=== PATIENT | male | born 1950 | race Caucasian/White ===

== ENCOUNTER → 2016-06-08 | Outpatient (CLI) | payer MEDICARE, OTHER ==
[2016-06-08 11:54] LABS: ABSOLUTE BASOPHILS # (AUTO) 0.1 10^3/uL (0.0-0.2); ABSOLUTE EOSINOPHILS # (AUTO) 0.2 10^3/uL (0.0-0.6); ABSOLUTE LYMPHOCYTES (AUTO) 4.1 10^3/uL (0.5-4.7); ABSOLUTE NEUT (AUTO) 4.8 10^3/uL (1.7-8.2); BASOPHILS % (AUTO) 1.2 % (0-2); EOSINOPHILS % (AUTO) 2.4 % (0-6); HEMATOCRIT 41.5 % (37.9-51.0); HEMOGLOBIN 13.7 g/dL (13.5-17.0); HGB HCT DIFFERENCE -0.4; LYMPHOCYTES % (AUTO) 39.9 % (13-45); MEAN CORPUSCULAR HEMOGLOBIN 28.3 pg (27.0-33.4); MEAN CORPUSCULAR HGB CONC 32.9 g/dL (32.0-36.0); MEAN CORPUSCULAR VOLUME 86 fl (80-97); MONOCYTES % (AUTO) 9.9 % (3-13); RED BLOOD COUNT 4.83 10^6/uL (4.35-5.55); RED CELL DISTRIBUTION WIDTH 14.7 % (11.5-14.0); SEGMENTED NEUTROPHILS % (AUTO) 46.6 % (42-78); WHITE BLOOD COUNT 10.2 10^3/uL (4.0-10.5)
[2016-06-08 12:01] LABS: VENOUS BLOOD BASE EXCESS -0.5 mmol/L; VENOUS BLOOD PCO2 49.2 mmHg (35-63); VENOUS BLOOD PH 7.34 (7.30-7.42)
== END ==
LOC: OD 11:13
PROVIDERS: ATTEND Nurse Practitioner Adult Health
DX: J44.1 Chronic obstructive pulmonary disease with (acute) exacerbation (principal)
CPT/HCPCS: 36415; 82803; 85025; 87070; 87077; 87205

== ENCOUNTER 2019-01-13 09:23 | Emergency (ER) | payer OTHER, MEDICARE ==
[2019-01-13] MEDS ORDERED: IPRATROPIUM/ALBUTEROL 0.5-2.5 MG/3 ML AMPUL NEB ONE (09:42)
[2019-01-13] MEDS ORDERED: KETOROLAC TROMETHAMINE INJ/PF 30 MG/1 ML SDV IM ONE (09:44)
[2019-01-13] MEDS ORDERED: METHOCARBAMOL 500 MG TABLET PO ONE (09:44)
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
--- NOTE | 2019-01-13 10:47 | RADIOLOGY REPORT (SQ) ---
EXAM DESCRIPTION: CHEST 2 VIEWS COMPLETED DATE/TIME: 01/13/2019 10:25 am REASON FOR STUDY: wheezing COMPARISON: Chest films 04/09/2013, 08/06/2015 CT chest 01/03/2016 EXAM PARAMETERS: NUMBER OF VIEWS: two views TECHNIQUE: Digital Frontal and Lateral radiographic views of the chest acquired. RADIATION DOSE: NA LIMITATIONS: none FINDINGS: LUNGS AND PLEURA: Chronic increased interstitial markings are present around the periphery of both lungs likely reflecting some pulmonary fibrosis. Lungs are hyperinflated with flattening in the hemidiaphragms. These findings are stable. No acute infiltrates. No pleural effusion or pneumothorax. MEDIASTINUM AND HILAR STRUCTURES: No masses or contour abnormalities. HEART AND VASCULAR STRUCTURES: Heart normal size. No evidence for failure. BONES: No acute findings. HARDWARE: None in the chest. OTHER: No other significant finding. IMPRESSION: Obstructive lung disease with interstitial disease. No acute infiltrates. TECHNICAL DOCUMENTATION: JOB ID: [id number] [employer]- All Rights Reserved Reading location - IP/workstation name: [email or web address]
[2019-01-13 10:52] VITALS: BP 131/57
== END 2019-01-13 10:55 | disposition home or self-care (01) ==
LOC: ER 09:23
DX: M54.9 Dorsalgia, unspecified (principal); J44.9 Chronic obstructive pulmonary disease, unspecified; V87.7XXA Person injured in collision between other specified motor vehicles (traffic), initial encounter; F17.210 Nicotine dependence, cigarettes, uncomplicated; E78.00 Pure hypercholesterolemia, unspecified; I10 Essential (primary) hypertension; E11.9 Type 2 diabetes mellitus without complications; I25.2 Old myocardial infarction
CPT/HCPCS: 94640; 99284; 96374; 71046; J1885; J7620

== ENCOUNTER 2019-01-31 14:06 | Inpatient (IN) | payer MEDICARE, OTHER ==
--- NOTE | 2019-01-31 14:25 | ER Document Report ---
ED Medical Screen (RME) - General Stated Complaint: ARM TINGLING Time Seen by Provider: 01/31/19 14:19 Mode of Arrival: Wheelchair Information source: Patient Notes: 69-year-old male with history of diabetes presents emergency department with left arm numbness, left foot feeling cold, chest pain. Reports numbness started on . He reports his friend told him he had some garbled speech but he did not believe him. Also reports when he stands up he feels off. Reports the chest pain comes and goes. Patient took a baby aspirin this morning. Took his medications as prescribed. Reports [place] in 2000. I have greeted and performed a rapid initial assessment of this patient. A comprehensive ED assessment and evaluation of the patient, analysis of test results and completion of the medical decision making process will be conducted by additional ED providers. Dictation of this chart was performed using voice recognition software; therefore, there may be some unintended grammatical errors. TRAVEL OUTSIDE OF THE [place] IN LAST 30 DAYS: No - Related Data Allergies/Adverse Reactions: No Known Allergies Allergy (Verified 01/13/19 09:23) Past Medical History - Past Medical History Cardiac Medical History: Reports: Hx Heart Attack, Hx Hypercholesterolemia, Hx Hypertension Pulmonary Medical History: Reports: Hx COPD Endocrine Medical History: Reports: Hx Diabetes Mellitus Type 2 Renal/ Medical History: Denies: Hx Peritoneal Dialysis Past Surgical History: Reports: Hx Cardiac Catheterization - with stent x 2, Hx Cardiac Surgery - STENTS, Hx Genitourinary Surgery - RIGHT KIDNEY, Hx Orthopedic Surgery - bilateral hips, Hx Vascular Surgery - Immunizations Hx Diphtheria, Pertussis, Tetanus Vaccination: No - unknown
[2019-01-31 15:08] LABS: ABSOLUTE BASOPHILS # (AUTO) 0.2 10^3/uL (0.0-0.2); ABSOLUTE EOSINOPHILS # (AUTO) 0.4 10^3/uL (0.0-0.6); ABSOLUTE LYMPHOCYTES (AUTO) 4.5 10^3/uL (0.5-4.7); ABSOLUTE MONOCYTES (AUTO) 0.9 10^3/uL (0.1-1.4); ABSOLUTE NEUT (AUTO) 8.1 10^3/uL (1.7-8.2); BASOPHILS % (AUTO) 1.4 % (0-2); EOSINOPHILS % (AUTO) 2.6 % (0-6); HEMATOCRIT 44.4 % (37.9-51.0); HEMOGLOBIN 14.5 g/dL (13.5-17.0); LYMPHOCYTES % (AUTO) 32.2 % (13-45); MEAN CORPUSCULAR HGB CONC 32.5 g/dL (32.0-36.0); MEAN CORPUSCULAR VOLUME 86 fl (80-97); MONOCYTES % (AUTO) 6.4 % (3-13); PLATELET COUNT 248 10^3/uL (150-450); RED BLOOD COUNT 5.16 10^6/uL (4.35-5.55); RED CELL DISTRIBUTION WIDTH 13.8 % (11.5-14.0); SEGMENTED NEUTROPHILS % (AUTO) 57.4 % (42-78); TOTAL CELLS COUNTED % (AUTO) 100 %; WHITE BLOOD COUNT 14.1 10^3/uL (4.0-10.5)
[2019-01-31 15:14] LABS: INTERNATIONAL RATION (INR) 0.97; PROTHROMBIN TIME 12.9 SEC (11.4-15.4)
[2019-01-31 15:15] LABS: PARTIAL THROMBOPLASTIN TIME 32.7 SEC (23.5-35.8)
--- NOTE | 2019-01-31 15:30 | RADIOLOGY REPORT (SQ) ---
EXAM DESCRIPTION: CHEST SINGLE VIEW COMPLETED DATE/TIME: 01/31/2019 2:43 pm REASON FOR STUDY: cp COMPARISON: Chest films 08/06/2015, 01/13/2019 EXAM PARAMETERS: NUMBER OF VIEWS: One view. TECHNIQUE: Single frontal radiographic view of the chest acquired. RADIATION DOSE: NA LIMITATIONS: None. FINDINGS: LUNGS AND PLEURA: Increased interstitial markings are present, chronic. No acute infiltra lloyd. No pleural effusion or pneumothorax. MEDIASTINUM AND HILAR STRUCTURES: No masses. Contour normal. HEART AND VASCULAR STRUCTURES: Heart normal in size. Normal vasculature. BONES: No acute findings. HARDWARE: Clips right neck post endarterectomy OTHER: No other significant finding. IMPRESSION: No acute findings. Chronic increased interstitial markings, stable TECHNICAL DOCUMENTATION: JOB ID: [id number] [employer]- All Rights Reserved Reading location - IP/workstation name: [email or web address]
[2019-01-31 15:36] LABS: ALBUMIN 4.4 g/dL (3.5-5.0); ALKALINE PHOSPHATASE 72 U/L (38-126); ANION GAP 13 (5-19); ASPARTATE AMINO TRANSFERASE 26 U/L (17-59); BILIRUBIN,DIRECT 0.1 mg/dL (0.0-0.4); BILIRUBIN,TOTAL 0.8 mg/dL (0.2-1.3); BLOOD UREA NITROGEN 20 mg/dL (7-20); CALCIUM 9.7 mg/dL (8.4-10.2); CARBON DIOXIDE 25 mmol/L (22-30); CHLORIDE 100 mmol/L (98-107); CREATINE KINASE 96 U/L (55-170); GLUCOSE 192 mg/dL (75-110); TOTAL PROTEIN 7.6 g/dL (6.3-8.2)
[2019-01-31 15:43] LABS: CREATINE KINASE MB 2.7 ng/mL (<4.55); TROPONIN I 0.015 ng/mL
--- NOTE | 2019-01-31 15:53 | RADIOLOGY REPORT (SQ) ---
EXAM DESCRIPTION: CT HEAD WITHOUT COMPLETED DATE/TIME: 01/31/2019 3:08 pm REASON FOR STUDY: numbness COMPARISON: 04/09/2013 CT brain TECHNIQUE: Axial images acquired through the brain without intravenous contrast. Images reviewed wi th bone, brain and subdural windows. Additional sagittal and coronal reconstructions were generated. Images stored on PACS. All CT scanners at this facility use dose modulation, iterative reconstruction, and/or weight based d osing when appropriate to reduce radiation dose to as low as reasonably achievable (ALARA). [facility]: Dose Right [facility]: CareDose [facility]: Dose Right [facility]: Teradose 4D [facility]: [employer] RADIATION DOSE: CT Rad equipment meets quality standard of care and radiation dose reduction techniq ues were employed. CTDIvol: 53.2 mGy. DLP: 964 mGy-cm. mGy. LIMITATIONS: None. FINDINGS: VENTRICLES: Normal size and contour. CEREBRUM: No masses. No hemorrhage. No midline shift. No evidence for acute infarction. Normal gra y/white matter differentiation. No areas of low density in the white matter. CEREBELLUM: No masses. No hemorrhage. No alteration of density. No evidence for acute infarction. EXTRAAXIAL SPACES: No fluid collections. No masses. ORBITS AND GLOBE: No intra- or extraconal masses. Normal contour of globe without masses. CALVARIUM: No fracture. PARANASAL SINUSES: No fluid or mucosal thickening. SOFT TISSUES: No mass or hematoma. OTHER: No other significant finding. IMPRESSION: NORMAL BRAIN CT WITHOUT CONTRAST. EVIDENCE OF ACUTE STROKE: NO. COMMENT: Quality ID # [id number]: Final reports with documentation of one or more dose reduction techniques (e.g., Automated exposure control, adjustment of the mA and/or kV according to patient size, use of iterative reconstruction technique) TECHNICAL DOCUMENTATION: JOB ID: [id number] [employer]- All Rights Reserved Reading location - IP/workstation name: [email or web address]
[2019-01-31] MEDS ORDERED: TETANUS/DIPHTHERIA TOX-ADULT 0.5 ML SYR (>=7YO) IM ONE (20:39)
[2019-01-31] MEDS ORDERED: IPRATROPIUM/ALBUTEROL 0.5-2.5 MG/3 ML AMPUL NEB ONE (21:48)
[2019-01-31] MEDS ORDERED: ASPIRIN 325 MG TABLET PO ONE (21:49)
--- NOTE | 2019-01-31 22:07 | EKG REPORT ---
SEVERITY:- ABNORMAL ECG - SINUS RHYTHM RIGHT AXIS DEVIATION NONSPECIFIC ST ABNORMALITIES, INFERIOR-LATERAL LEADS : Confirmed by: Prudencio Sanchez MD 31-Jan-2019 22:06:44
--- NOTE | 2019-01-31 22:18 | EKG REPORT ---
SEVERITY:- ABNORMAL ECG - SINUS RHYTHM RIGHT AXIS DEVIATION NONSPECIFIC T ABNORMALITIES, DIFFUSE LEADS : Confirmed by: Prudencio Sanchez MD 31-Jan-2019 22:17:41
--- NOTE | 2019-01-31 23:35 | ER Document Report ---
ED General - General Chief Complaint: S/S of Possible Stroke Stated Complaint: ARM TINGLING Time Seen by Provider: 01/31/19 14:19 Mode of Arrival: Wheelchair Notes: Patient is a 69-year-old male history of COPD, hypertension, hyperlipidemia, diabetes presents to the emergency department with a [id number] feeling in his left upper and lower extremity. Patient states this feeling started approximately at noon. States at that time a friend told him he had slurred speech and his face looked "weird." Patient voices he did not feel as though his face looked differently. States potentially he pinched nerve which is why he did not initially present to the emergency room. Patient states when he did present to the emergency department he had a dull feeling in the left chest. Patient states he no longer has any chest pain. States he was never short of breath. States he does have a history of COPD and does use albuterol. States his typical oxygen saturation is 92%. Patient's denying any URI symptoms or fevers. Medications: Metformin, gabapentin, clonidine, glipizide, Percocet, aspirin, atorvastatin, lisinopril TRAVEL OUTSIDE OF THE [place] IN LAST 30 DAYS: No - Related Data Allergies/Adverse Reactions: No Known Allergies Allergy (Verified 01/13/19 09:23) Past Medical History - General Information source: Patient - Social History Smoking Status: Current Every Day Smoker Chew tobacco use (# tins/day): No Frequency of alcohol use: Social Drug Abuse: None Family History: Reviewed & Not Pertinent Patient has suicidal ideation: No Patient has homicidal ideation: No - Past Medical History Cardiac Medical History: Reports: Hx Heart Attack, Hx Hypercholesterolemia, Hx Hypertension Pulmonary Medical History: Reports: Hx COPD Endocrine Medical History: Reports: Hx Diabetes Mellitus Type 2 Renal/ Medical History: Denies: Hx Peritoneal Dialysis Past Surgical History: Reports: Hx Cardiac Catheterization - with stent x 2, Hx Cardiac Surgery - STENTS, Hx Genitourinary Surgery - RIGHT KIDNEY, Hx Orthopedic Surgery - bilateral hips, Hx Vascular Surgery - Immunizations Hx Diphtheria, Pertussis, Tetanus Vaccination: No - unknown Review of Systems - Review of Systems Constitutional: denies: Fever EENT: No symptoms reported Cardiovascular: See HPI Respiratory: No symptoms reported Gastrointestinal: No symptoms reported Genitourinary: No symptoms reported Male Genitourinary: No symptoms reported Musculoskeletal: See HPI Skin: No symptoms reported Hematologic/Lymphatic: No symptoms reported Physical Exam - Vital signs Vitals: Temp Pulse Resp BP Pulse Ox 98.1 F 88 16 142/69 H 96 01/31/19 14:28 01/31/19 14:28 01/31/19 14:28 01/31/19 14:28 01/31/19 14:28 - Notes Notes: GENERAL: Alert, interacts well. No acute distress. HEAD: Normocephalic, atraumatic. EYES: Pupils equal, round, and reactive to light. Extraocular movements intact. ENT: Oral mucosa moist, tongue midline. NECK: Full range of motion. Supple. Trachea midline. LUNGS: Expiratory wheeze heard bilaterally, no discernible rales, or rhonchi. No respiratory distress. HEART: Regular rate and rhythm. No murmur ABDOMEN: Soft, non-tender. Non-distended. Bowel sounds present in all 4 quadrants. EXTREMITIES: Moves all 4 extremities spontaneously. No edema, normal radial and dorsalis pedis pulses bilaterally. No cyanosis. 5 out of 5 strength noted all 4 extremities. BACK: no cervical, thoracic, lumbar midline tenderness. No saddle anesthesia, normal distal neurovascular exam. NEUROLOGICAL: Alert and oriented x3. Normal speech. cranial nerves II through XII grossly intact PSYCH: Normal affect, normal mood. SKIN: Warm, dry, normal turgor. No rashes or lesions noted. [place] stroke scale noted to be 0. NIH scale 0. Course - Re-evaluation Re-evalutation: Patient voices that his normal oxygen saturation is typically 92%. Patient voices that he is "always breathing fast." States this is his normal due to his COPD. Patient is denying any respiratory distress or chest pain upon my evaluation. States he does continue with a "[id number]-qoy-euwsxte" feeling in his left upper and left lower extremity. Patient's NIH scale done by myself is a 0. I have discussed this case with hospitalist Dr. Marti who will admit the patient to [facility]. - Vital Signs Vital signs: Temp Pulse Resp BP Pulse Ox 98.1 F 81 29 H 143/57 H 91 L 01/31/19 14:28 01/31/19 19:37 01/31/19 20:01 01/31/19 20:01 09/21/19 20:01 - Laboratory Result Diagrams: 01/31/19 14:57 01/31/19 14:57 Laboratory results interpreted by me: 01/31/19 01/31/19 01/31/19 14:57 14:57 14:57 WBC 14.1 H Glucose 192 H POC Glucose 188 H Discharge - Discharge Clinical Impression: Tingling of right upper extremity, Numbness and tingling of right lower extremity Condition: Stable Disposition: ADMITTED INPATIENT Admitting Provider: Figueroa (Hospitalist) Unit Admitted: [facility]
[2019-02-01] MEDS ORDERED: ONDANSETRON HCL INJ/PF 4 MG/2 ML SDV IV PRN (03:56)
[2019-02-01] MEDS ORDERED: LABETALOL HCL INJ 20 MG/4 ML DISP.SYRIN IV PRN (03:56)
[2019-02-01] MEDS ORDERED: DOCUSATE SODIUM 100 MG CAPSULE PO PRN (03:56)
[2019-02-01] MEDS ORDERED: TRAMADOL HCL 50 MG TABLET PO PRN (03:56)
[2019-02-01] MEDS ORDERED: ACETAMINOPHEN 325 MG TABLET PO PRN (03:56)
[2019-02-01] MEDS ORDERED: TEMAZEPAM 15 MG CAPSULE PO PRN (03:56)
[2019-02-01] MEDS ORDERED: MAGNESIUM HYDROXIDE SUSP 30 ML UDCUP PO PRN (03:56)
[2019-02-01] MEDS ORDERED: NITROGLYCERIN 0.4 MG/TAB 25 TAB/BOTTLE SL PRN (04:07)
[2019-02-01] MEDS ORDERED: LEVALBUTEROL HCL NEB 0.63 MG/3 ML AMPUL NEB PRN (04:07)
[2019-02-01] MEDS ORDERED: GLUCAGON,HUMAN RECOMB 1 MG INJ IM PRN (04:07)
[2019-02-01] MEDS ORDERED: DEXTROSE 50%-WATER 25 GM/50 ML DISP.SYRIN IV PRN ×2 (04:07)
[2019-02-01] MEDS ORDERED: MAG HYDROX/AL HYDROX/SIMETH SUSP 30 ML UDCUP PO PRN (04:07)
[2019-02-01] MEDS ORDERED: DEXTROSE 40% GEL 15 GM TUBE PO PRN ×2 (04:07)
[2019-02-01] MEDS ORDERED: MORPHINE SULFATE 10 MG/ML INJ IV PRN ×4 (04:07→04:12)
[2019-02-01 04:58] LABS: APPEARANCE,URINE SLIGHTLY-CLOUDY; BILIRUBIN,URINE NEGATIVE (NEGATIVE); COLOR,URINE YELLOW; GLUCOSE, URINE >=500 mg/dL (NEGATIVE); KETONES,URINE NEGATIVE (NEGATIVE); LEUKOCYTE ESTERASE,URINE MODERATE (NEGATIVE); NITRITE,URINE NEGATIVE (NEGATIVE); PROTEIN,URINE 30 mg/dL (NEGATIVE); URINE SPECIFIC GRAVITY 1.009; UROBILINOGEN,URINE NEGATIVE mg/dL (<2.0)
[2019-02-01] MEDS ORDERED: SCOPOLAMINE HYDROBROMIDE 1.5 MG PATCH.TD72 TD ONE (05:43)
--- NOTE | 2019-02-01 05:47 | PDOC H&P ---
History of Present Illness Admission Date/PCP: 01/31/19 23:47 Almaz Robles Patient complains of: Left-sided tingling History of Present Illness: RENATA AGUILAR is a 69 year old male who presents the emergency room with a 3-day history of a tingling sensation in his left upper and lower extremities. He states that his left arm and leg abruptly began tingling ([id number]) at approximately noon on 01/29/2019, while he was driving home. The tingling has remained constant and of moderate intensity since onset. He further admits that a friend of his told him that his speech was a little slurred and that his face looked different than usual when his symptoms started. Patient states that he checked in the mirror and listen to himself and did not see or hear any changes. He adds that he has experienced some general dizziness with standing or changing position and a dull sensation in his left chest earlier on the day of admission that lasted for a few minutes and resolved spontaneously. He denies other associated signs or symptoms. He denies prior similar episodes. He has not identified any aggravating or ameliorating factors for the tingling sensation in his left extremities. In the emergency room he was found to have a CT scan of the head negative for evidence of acute stroke or hemorrhage. His laboratory evaluation was unremarkable with the exception of an elevated serum glucose. Patient was subsequently admitted to the [facility] for evaluation and treatment in the stroke protocol. Past Medical History Cardiac Medical History: Reports: Coronary Artery Disease, Myocardial Infarction, Hyperlipidema, Hypertension Denies: Atrial Fibrillation, Congestive Heart Failure Pulmonary Medical History: Reports: Chronic Obstructive Pulmonary Disease (COPD) Denies: Asthma, Respiratory Failure EENT Medical History: Denies: Cataracts, Ears - Hearing aids Neurological Medical History: Denies: Hemorrhagic CVA, Ischemic CVA, Seizures Endocrine Medical History: Reports: Diabetes Mellitus Type 2 Denies: Diabetes Mellitus Type 1, Hyperthyroidism, Hypothyroidism, Obesity Renal/ Medical History: Denies: Chronic Kidney Disease, Nephrolithiasis Malignancy Medical History: Reports: None GI Medical History: Denies: Cirrhosis, Crohn's Disease, Gastroesophageal Reflux Disease, Hepatitis, Peptic Ulcer Disease, Ulcerative Colitis Musculoskeltal Medical History: Denies: Arthritis, Gout Skin Medical History: Denies: Eczema, Psoriasis Psychiatric Medical History: Reports: Tobacco Dependency Denies: Alcohol Dependency, Depression, Substance Abuse Traumatic Medical History: Reports: None Hematology: Denies: Anemia, Bleeding Tendencies Infectious Medical History: Reports: None Past Surgical History Past Surgical History: Reports: Cardiac Catheterization, Coronary Stent - X 2, Hip Replacement, Orthopedic Surgery - bilateral hips, Vascular Surgery Social History Information Source: Patient Lives with: Alone Smoking Status: Current Every Day Smoker Cigarettes Packs Per Day: 1.5 Number of Years Smokin Last Time Smoked: today Frequency of Alcohol Use: Rare Hx Recreational Drug Use: No Drugs: None Hx Prescription Drug Abuse: No - Advance Directive Resuscitation Status: Full Code Surrogate healthcare decision maker:: Dima Myrick Family History Family History: CAD, DM, Hypertension. denies: Malignancy Parental Family History Reviewed: Yes Children Family History Reviewed: No Sibling(s) Family History Reviewed.: Yes Medication/Allergy Home Medications: Gabapentin [Neurontin] 1,200 mg PO TID 08/06/15 Glimepiride 8 mg PO BID 08/06/15 Lovastatin 40 mg PO QHS 08/06/15 Metformin HCl 1,000 mg PO BID 08/06/15 Albuterol Sulfate [Proair HFA Inhalation Aerosol 8.5 gm MDI] 1 puff IH Q4 PRN #1 mdi 08/07/15 Aspirin [Ecotrin 81 mg EC Tablet] 81 mg PO DAILY tabec 08/07/15 Budesonide/Formoterol Fumarate [Symbicort HFA 160-4.5 mcg Inhaler 6 gm] 2 puff IH Q12 #1 inhaler 08/07/15 Clonidine HCl [Catapres 0.1 mg Tablet] 0.1 mg PO Q12 #60 tablet 08/07/15 Doxycycline Hyclate 100 mg PO BID #14 capsule 08/07/15 Lisinopril [Prinivil 10 mg Tablet] 10 mg PO DAILY #30 tablet 08/07/15 Oxycodone HCl/Acetaminophen [Percocet 7.5-325 mg Tablet] 1 each PO Q6HP PRN #20 tablet 08/07/15 Prednisone 10 mg PO DAILY #13 tablet 08/07/15 Methocarbamol [Robaxin 500 mg Tablet] 1,000 mg PO TID #15 tablet 01/13/19 Allergies/Adverse Reactions: No Known Allergies Allergy (Verified 01/13/19 09:23) Review of Systems Constitutional: ABSENT: chills, fever(s) Eyes: ABSENT: visual disturbances, other - Eye pain Ears: ABSENT: hearing changes, other - Ear pain Nose, Mouth, and Throat: ABSENT: mouth pain, sore throat Cardiovascular: PRESENT: as per HPI, chest pain. ABSENT: dyspnea on exertion, edema, orthropnea, palpitations Respiratory: ABSENT: cough, dyspnea Gastrointestinal: ABSENT: abdominal pain, constipation, diarrhea, nausea, v omiting Genitourinary: ABSENT: dysuria, hematuria Musculoskeletal: ABSENT: back pain, joint swelling, muscle weakness Integumentary: ABSENT: pruritus, rash Neurological: PRESENT: as per HPI, abnormal speech, dizziness, tingling. ABSENT: confusion, convulsions, focal weakness, memory loss, syncope Psychiatric: ABSENT: anxiety, depression Endocrine: ABSENT: cold intolerance, heat intolerance Hematologic/Lymphatic: ABSENT: easy bleeding, easy bruising Allergic/Immunologic: ABSENT: seasonal rhinorrhea Physical Exam Vital Signs: Temp Pulse Resp BP Pulse Ox 98.3 F 80 16 165/72 H 95 02/01/19 02:02 02/01/19 02:06 02/01/19 02:06 02/01/19 02:06 02/01/19 02:06 Intake & Output 01/30/19 01/31/19 02/01/19 23:59 23:59 23:59 Weight 71.5 kg General appearance: PRESENT: no acute distress, cooperative Head exam: PRESENT: atraumatic, normocephalic Eye exam: PRESENT: conjunctiva pink, nystagmus. ABSENT: conjunctival injection, scleral icterus Ear exam: PRESENT: normal external ear exam. ABSENT: bleeding, drainage Mouth exam: PRESENT: dry mucosa, neck supple Neck exam: ABSENT: thyromegaly, tracheal deviation Respiratory exam: PRESENT: clear to auscultation emily, symmetrical, unlabored Cardiovascular exam: PRESENT: RRR. ABSENT: clicks, gallop, rubs Pulses: PRESENT: normal radial pulses, normal dorsalis pedis pul Vascular exam: PRESENT: normal capillary refill. ABSENT: pallor GI/Abdominal exam: PRESENT: normal bowel sounds, soft Rectal exam: PRESENT: deferred - [id number] Extremities exam: ABSENT: joint swelling, pedal edema Musculoskeletal exam: ABSENT: deformity, dislocation Neurological exam: PRESENT: alert, oriented to person, oriented to place, oriented to time, oriented to situation, CN II-XII grossly intact. ABSENT: motor sensory deficit Psychiatric exam: PRESENT: appropriate affect, normal mood Skin exam: PRESENT: dry, intact, warm. ABSENT: jaundice, rash, urticaria Results Laboratory Results: 01/31/19 14:57 01/31/19 14:57 01/31/19 01/31/19 14:57 14:57 WBC 14.1 H RBC 5.16 Hgb 14.5 Hct 44.4 MCV 86 MCH 28.0 MCHC 32.5 RDW 13.8 Plt Count 248 Seg Neutrophils % 57.4 Sodium 137.6 Potassium 4.0 Chloride 100 Carbon Dioxide 25 Anion Gap 13 BUN 20 Creatinine 1.02 Est GFR ( Amer) > 60 Glucose 192 H Calcium 9.7 Total Bilirubin 0.8 AST 26 Alkaline Phosphatase 72 Total Protein 7.6 Albumin 4.4 01/31/19 01/31/19 01/31/19 14:57 14:57 21:45 Creatine Kinase 96 CK-MB (CK-2) 2.70 Troponin I 0.015 0.015 Impressions: Chest X-Ray 01/31/19 14:23 IMPRESSION: No acute findings. Chronic increased interstitial markings, stable Head CT 01/31/19 14:23 IMPRESSION: NORMAL BRAIN CT WITHOUT CONTRAST. EVIDENCE OF ACUTE STROKE: NO. Assessment and Plan - Diagnosis (1) Numbness and tingling of right upper and lower extremity Is this a current diagnosis for this admission?: Yes Plan: Patient is admitted to [facility] per the stroke protocol. An MRI of the brain, carotid Doppler studies and an echocardiogram will be obtained. Patient will be started on appropriate initial therapy including Plavix 75 mg p.o. daily. Patient will have available morphine sulfate 2 to 4 mg IV every 2 hours on a as needed basis for pain via sliding scale. (2) Chest pain Qualifiers: Chest pain type: other chest pain Qualified Code(s): R07.89 - Other chest pain; R07.8 - Other chest pain Is this a current diagnosis for this admission?: Yes Plan: Serial cardiac enzymes will be obtained to evaluate the patient's chest pain. Morphine sulfate 2 to 4 mg IV every 2 hours on an as needed basis via sliding scale for pain. (3) Chronic obstructive pulmonary disease (COPD) Qualifiers: COPD type: unspecified COPD Qualified Code(s): J44.9 - Chronic obstructive pulmonary disease, unspecified Is this a current diagnosis for this admission?: Yes Plan: Patient will be continued on his usual regimen for COPD if available per our pharmacy. If unavailable a reasonable formulary substitution will be provided. (4) Hypertension Qualifiers: Hypertension type: essential hypertension Qualified Code(s): I10 - Essential (primary) hypertension Is this a current diagnosis for this admission?: Yes Plan: Patient be continued on his usual antihypertensive regimen. Patient's blood pressure will be monitored closely throughout his hospital course. (5) Hyperlipidemia Qualifiers: Hyperlipidemia type: unspecified Qualified Code(s): E78.5 - Hyperlipidemia, unspecified Is this a current diagnosis for this admission?: Yes Plan: A lipid profile will be obtained. Patient will be continued on his usual therapeutic regimen. Patient will be continued on a cardiac diet. (6) Diabetes mellitus type 2 in nonobese Is this a current diagnosis for this admission?: Yes Plan: Hemoglobin A1c will be obtained to assess the patient's current therapy. He will be continued on his usual diabetic therapy and a diabetic diet. Before meals and at bedtime Accu-Cheks to be performed with sliding scale insulin used to cover hyperglycemia and a hypoglycemic protocol being in place. (7) Tobacco use disorder, severe, dependence Is this a current diagnosis for this admission?: Yes Plan: Smoking cessation is advised and counseled briefly at the bedside. A nicotine replacement patch is available for the patient's use. - Time Time Spent with patient: 25-34 minutes Smoking Cessation Education: 3 to 10 minutes Medications reviewed and adjusted accordingly: Yes Anticipated discharge: Home - Inpatient Certification Based on my medical assessment, after consideration of the patient's comorbidities, presenting symptoms, or acuity I expect that the services needed warrant INPATIENT care.: Yes I certify that my determination is in accordance with my understanding of Medicare's requirements for reasonable and necessary INPATIENT services [42 CFR 412.3e].: Yes Medical Necessity: Significant Comorbidiites Make Outpatient Treatment Too Risky, Need Close Monitoring Due to Risk of Patient Decompensation, Need For Continuous Telemetry Monitoring, Need for Neurological Checks, Risk of Compl ication if Not Cared For in Hospital
[2019-02-01] MEDS: GABAPENTIN 400 MG CAPSULE PO SCH ×3 (05:50→21:52)
[2019-02-01] MEDS: NICOTINE 21 MG/24 HR PATCH.TD24 TD PRN ×2 (05:51→22:02)
[2019-02-01] MEDS: HEPARIN SOD (PORCINE) 5,000 UNIT/ML 1 ML VIAL SUBCUT SCH ×3 (05:57→21:52)
[2019-02-01] MEDS ORDERED: GABAPENTIN 400 MG CAPSULE PO SCH (06:00)
[2019-02-01] MEDS ORDERED: SCOPOLAMINE HYDROBROMIDE 1.5 MG PATCH.TD72 ONE (06:20)
[2019-02-01 06:53] LABS: CREATINE KINASE MB 2.16 ng/mL (<4.55); TROPONIN I 0.012 ng/mL
[2019-02-01] MEDS: IPRATROPIUM BROMIDE 0.02% NEB 0.5 MG/2.5 ML AMPUL NEB SCH ×3 (07:57→23:34)
[2019-02-01] MEDS: LEVALBUTEROL HCL NEB 1.25 MG/3 ML AMPUL NEB SCH ×3 (07:57→23:34)
[2019-02-01] MEDS: BUDESONIDE NEB 0.5 MG/2 ML AMPUL NEB SCH ×2 (07:57→20:52)
[2019-02-01] MEDS: GLIMEPIRIDE 4 MG TABLET PO SCH ×2 (08:15→21:52)
[2019-02-01] MEDS: METFORMIN HCL 500 MG TABLET PO SCH ×2 (08:15→17:07)
[2019-02-01] MEDS: INSULIN REG, HUMAN 100 UNIT/ML 3 ML VIAL (PYX) SUBCUT SCH ×4 (08:16→23:19)
[2019-02-01] MEDS: FAMOTIDINE 20 MG TABLET PO SCH ×2 (11:03→21:52)
[2019-02-01] MEDS: CLOPIDOGREL BISULFATE 75 MG TABLET PO SCH (11:03)
[2019-02-01 12:40] LABS: CREATINE KINASE MB 2.23 ng/mL (<4.55)
[2019-02-01 12:46] LABS: TROPONIN I < 0.012 ng/mL
[2019-02-01] MEDS: CLONIDINE HCL 0.1 MG TABLET PO SCH ×2 (15:51→21:52)
[2019-02-01] MEDS: LISINOPRIL 10 MG TABLET PO SCH (15:52)
--- NOTE | 2019-02-01 16:49 | PDOC PROGRESS REPORT ---
Subjective Progress Note for:: 02/01/19 Subjective:: Reportedly off and on slurred speech and numbness and tingling which has been constant in the left arm and left leg. Patient does not have a history of previous CVA or TIAs but he does have a history of cardiac disease with stents. He also tells me he has had a left carotid endarterectomy. Therefore patient does have vascular disease. he also tells me that he had an MRI of his head and cervical spine about 3 weeks ago at pain management, [facility] pain try to get those results tomorrow. Reason For Visit: NUMBNESS AND TINGLING OF LEFT EXTREMITIES Physical Exam Vital Signs: Temp Pulse Resp BP Pulse Ox 97.3 F 78 18 157/81 H 95 02/01/19 11:21 02/01/19 15:57 02/01/19 15:57 02/01/19 12:00 02/01/19 15:57 Intake & Output 01/31/19 02/01/19 02/02/19 06:59 06:59 06:59 Intake Total 240 Output Total 225 Balance 15 Weight 69 kg General appearance: PRESENT: no acute distress, other - Patient is talking and joking in no distress. Actually asking to watch the football game. Respiratory exam: PRESENT: clear to auscultation emily. ABSENT: rales, rhonchi, wheezes Cardiovascular exam: PRESENT: RRR. 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 ABSENT: motor sensory deficit Psychiatric exam: PRESENT: appropriate affect, normal mood. ABSENT: homicidal ideation, suicidal ideation Results Laboratory Results: 01/31/19 14:57 01/31/19 14:57 02/01/19 04:30 Urine Color YELLOW Urine Appearance SLIGHTLY-CLOUDY Urine pH 7.0 Ur Specific [place] 1.009 Urine Protein 30 H Urine Glucose (UA) >=500 H Urine Ketones NEGATIVE Urine Blood NEGATIVE Urine Nitrite NEGATIVE Ur Leukocyte Esterase MODERATE H Urine WBC (Auto) 30 Urine RBC (Auto) 0 01/31/19 01/31/19 01/31/19 14:57 14:57 21:45 Creatine Kinase 96 CK-MB (CK-2) 2.70 Troponin I 0.015 0.015 02/01/19 02/01/19 02/01/19 05:28 05:28 11:51 Creatine Kinase 80 93 CK-MB (CK-2) 2.16 Troponin I 0.012 02/01/19 11:51 Creatine Kinase CK-MB (CK-2) 2.23 Troponin I < 0.012 Impressions: Chest X-Ray 01/31/19 14:23 IMPRESSION: No acute findings. Chronic increased interstitial markings, stable Head CT 01/31/19 14:23 IMPRESSION: NORMAL BRAIN CT WITHOUT CONTRAST. EVIDENCE OF ACUTE STROKE: NO. Assessment and Plan - Diagnosis (1) CAD (coronary artery disease) Is this a current diagnosis for this admission?: Yes Plan: Patient tells me that he had coronary stents placed approximately 1 and half years ago. Patient is having no chest pain on this admission (2) Hypertension Is this a current diagnosis for this admission?: Yes Plan: Patient is supposed to take clonidine 0.1 mg every 12 hours, as well as Prinivil 5 mg daily blood pressure on admission was 128/66 today it is running about 170/80. After watching his blood pressures throughout the day and last night I am going to restart his lisinopril at 10 mg daily (3) Chronic obstructive pulmonary disease (COPD) Qualifiers: COPD type: unspecified COPD Qualified Code(s): J44.9 - Chronic obstructive pulmonary disease, unspecified Is this a current diagnosis for this admission?: Yes Plan: Patient will be continued on his usual regimen for COPD if available per our pharmacy. If unavailable a reasonable formulary substitution will be provided. 02/01/2019 patient was taking albuterol inhaler as needed will be ordered on a as needed basis if needed.. Patient has no symptoms now suggestive of COPD exacerbation (4) Hypertension Qualifiers: Hypertension type: essential hypertension Qualified Code(s): I10 - Essential (primary) hypertension Is this a current diagnosis for this admission?: Yes Plan: Patient be continued on his usual antihypertensive regimen. Patient's blood pressure will be monitored closely throughout his hospital course. 02/01/2019 patient was on clonidine 0.1 mg every 12 hours and Prinivil 5 mg daily on admission his pressure was normal 128/66 but during the night last night it went up to 182/74 this morning early 187/71 and outs bounced back up to 172/84. We will resume the lisinopril only and hold on the Catapres at this time. (5) Numbness and tingling of right upper and lower extremity Is this a current diagnosis for this admission?: Yes Plan: Patient is admitted to [facility] per the stroke protocol. An MRI of the brain, carotid Doppler studies and an echocardiogram will be obtained. Patient will be started on appropriate initial therapy including Plavix 75 mg p.o. daily. Patient will have available morphine sulfate 2 to 4 mg IV every 2 hours on a as needed basis for pain via sliding scale. 02/01/2019 patient will have a carotid Doppler and an echo and we will get his MRI scans from 3 weeks ago of his head. CT brain scan was negative for acute infarction patient's numbness and tingling have been constant for the last 3 days on his left arm and left leg. he describes this is paresthesias or dysesthesias I honestly cannot detect any weakness of the left terrazzo layer strength nor does he have a drift nor does he have any facial weakness. (6) Diabetes mellitus type 2 in nonobese Is this a current diagnosis for this admission?: Yes Plan: Hemoglobin A1c will be obtained to assess the patient's current therapy. He will be continued on his usual diabetic therapy and a diabetic diet. Before meals and at bedtime Accu-Cheks to be performed with sliding scale insulin used to cover hyperglycemia and a hypoglycemic protocol being in place. 02/01/2019 glucose last night on admission was 192. Fingerstick today ranges between 101 and 218. Patient was on Amaryl 4 mg twice daily and metformin thousand milligrams twice daily as an outpatient. - Time Time Spent with patient: 35 or more minutes
[2019-02-01] MEDS ORDERED: LISINOPRIL 10 MG TABLET PO ONE (17:30)
--- NOTE | 2019-02-01 17:41 | EKG REPORT ---
SEVERITY:- ABNORMAL ECG - SINUS RHYTHM NONSPECIFIC INFERIOR ST-T CHANGES : Confirmed by: Prudencio Sanchez MD 01-Feb-2019 17:40:40
[2019-02-01 18:05] LABS: CREATINE KINASE MB 1.98 ng/mL (<4.55)
[2019-02-01 18:08] LABS: TROPONIN I < 0.012 ng/mL
[2019-02-01] MEDS ORDERED: NICOTINE 21 MG/24 HR PATCH.TD24 ONE (22:02)
[2019-02-02] MEDS: HEPARIN SOD (PORCINE) 5,000 UNIT/ML 1 ML VIAL SUBCUT SCH ×3 (05:51→21:31)
[2019-02-02] MEDS: GABAPENTIN 400 MG CAPSULE PO SCH ×3 (05:51→21:30)
[2019-02-02 07:07] LABS: HEMATOCRIT 39.8 % (37.9-51.0); MEAN CORPUSCULAR HEMOGLOBIN 27.8 pg (27.0-33.4); MEAN CORPUSCULAR HGB CONC 32.6 g/dL (32.0-36.0); MEAN CORPUSCULAR VOLUME 85 fl (80-97); PLATELET COUNT 218 10^3/uL (150-450); RED BLOOD COUNT 4.67 10^6/uL (4.35-5.55); RED CELL DISTRIBUTION WIDTH 13.9 % (11.5-14.0); WHITE BLOOD COUNT 9.7 10^3/uL (4.0-10.5)
[2019-02-02 07:29] LABS: ANION GAP 11 (5-19); BLOOD UREA NITROGEN 11 mg/dL (7-20); CARBON DIOXIDE 22 mmol/L (22-30); CHLORIDE 102 mmol/L (98-107); CHOLESTEROL 149.37 mg/dL (0-200); GLUCOSE 163 mg/dL (75-110); POTASSIUM 4.3 mmol/L (3.6-5.0); TRIGLYCERIDES 498 mg/dL (<150)
[2019-02-02 07:40] LABS: DIRECT LDL 69 mg/dL (<100)
[2019-02-02] MEDS: LEVALBUTEROL HCL NEB 1.25 MG/3 ML AMPUL NEB SCH ×2 (08:11→16:20)
[2019-02-02] MEDS: BUDESONIDE NEB 0.5 MG/2 ML AMPUL NEB SCH ×2 (08:11→20:15)
[2019-02-02] MEDS: IPRATROPIUM BROMIDE 0.02% NEB 0.5 MG/2.5 ML AMPUL NEB SCH ×2 (08:11→16:20)
[2019-02-02] MEDS: METFORMIN HCL 500 MG TABLET PO SCH ×2 (09:47→16:57)
[2019-02-02] MEDS: LISINOPRIL 10 MG TABLET PO SCH (09:47)
[2019-02-02] MEDS: CLONIDINE HCL 0.1 MG TABLET PO SCH ×2 (09:47→21:30)
[2019-02-02] MEDS: GLIMEPIRIDE 4 MG TABLET PO SCH ×2 (09:47→16:57)
[2019-02-02] MEDS: CLOPIDOGREL BISULFATE 75 MG TABLET PO SCH (09:47)
[2019-02-02] MEDS: FAMOTIDINE 20 MG TABLET PO SCH ×2 (09:48→21:30)
[2019-02-02] MEDS: INSULIN REG, HUMAN 100 UNIT/ML 3 ML VIAL (PYX) SUBCUT SCH ×4 (09:48→21:28)
--- NOTE | 2019-02-02 11:01 | PDOC PROGRESS REPORT ---
Subjective Progress Note for:: 02/02/19 Subjective:: Reportedly off and on slurred speech and numbness and tingling which has been constant in the left arm and left leg. Patient does not have a history of previous CVA or TIAs but he does have a history of cardiac disease with stents. He also tells me he has had a left carotid endarterectomy. Therefore patient does have vascular disease. he also tells me that he [facility]. 02/02/2019 nurses are trying to get a the report for the MRI scan. We are starting back some of his blood pressure medicine today adjusting his gabapentin teen and Percocet order Echo and carotid are pending for today Reason For Visit: NUMBNESS AND TINGLING OF LEFT EXTREMITIES Physical Exam Vital Signs: Temp Pulse Resp BP Pulse Ox 97.7 F 75 14 138/69 H 93 02/02/19 07:47 02/02/19 08:11 02/02/19 08:11 02/02/19 07:47 02/02/19 08:11 Intake & Output 02/01/19 02/02/19 02/03/19 06:59 06:59 06:59 Intake Total 240 1164 Output Total 225 Balance 15 1164 Weight 69 kg 70.3 kg Results Laboratory Results: 02/02/19 06:32 02/02/19 06:32 02/02/19 02/02/19 06:32 06:32 WBC 9.7 RBC 4.67 Hgb 13.0 L Hct 39.8 MCV 85 MCH 27.8 MCHC 32.6 RDW 13.9 Plt Count 218 Sodium 135.1 L Potassium 4.3 Chloride 102 Carbon Dioxide 22 Anion Gap 11 BUN 11 Creatinine 0.79 Est GFR ( Amer) > 60 Glucose 163 H Calcium 10.0 Triglycerides 498 H Cholesterol 149.37 LDL Cholesterol Direct 69 HDL Cholesterol 39 L 01/31/19 01/31/19 01/31/19 14:57 14:57 21:45 Creatine Kinase 96 CK-MB (CK-2) 2.70 Troponin I 0.015 0.015 02/01/19 02/01/19 02/01/19 05:28 05:28 11:51 Creatine Kinase 80 93 CK-MB (CK-2) 2.16 Troponin I 0.012 02/01/19 02/01/19 02/01/19 11:51 17:20 17:20 Creatine Kinase 94 CK-MB (CK-2) 2.23 1.98 Troponin I < 0.012 < 0.012 Impressions: Chest X-Ray 01/31/19 14:23 IMPRESSION: No acute findings. Chronic increased interstitial markings, stable Head CT 01/31/19 14:23 IMPRESSION: NORMAL BRAIN CT WITHOUT CONTRAST. EVIDENCE OF ACUTE STROKE: NO. Assessment and Plan - Diagnosis (1) CAD (coronary artery disease) Is this a current diagnosis for this admission?: Yes Plan: Patient tells me that he had coronary stents placed approximately 1 and half years ago. Patient is having no chest pain on this admission 02/02/2019 patient is having no chest pain, no signs of ischemia. Patient is currently taking lisinopril 5 mg daily and Lipitor 40 mg daily (2) Hypertension Is this a current diagnosis for this admission?: Yes Plan: Patient is supposed to take clonidine 0.1 mg every 12 hours, as well as Prinivil 5 mg daily blood pressure on admission was 128/66 today it is running about 170/80. After watching his blood pressures throughout the day and last night I am going to restart his lisinopril at 10 mg daily 02/02/2019 patient's blood pressure so far this morning has been elevated, early at 0400 171/100 and then later at around 0800 gone down to 138/69. (3) Chronic obstructive pulmonary disease (COPD) Qualifiers: COPD type: unspecified COPD Qualified Code(s): J44.9 - Chronic obstructive pulmonary disease, unspecified Is this a current diagnosis for this admission?: Yes Plan: Patient will be continued on his usual regimen for COPD if available per our pharmacy. If unavailable a reasonable formulary substitution will be provided. 02/01/2019 patient was taking albuterol inhaler as needed will be ordered on a as needed basis if needed.. Patient has no symptoms now suggestive of COPD exacerbation 02/02/2019 patient's lungs have some coarse rhonchi scattered as well as some wheezing patient states that he has had COPD for a long time now. Patient states he supposed use oxygen at home but it was too expensive and has not used it in several years. Patient COPD is not a problem now for this admission, that is to say he does not have an exacerbation (4) Numbness and tingling of right upper and lower extremity Is this a current diagnosis for this admission?: Yes Plan: Patient is admitted to [facility] per the stroke protocol. An MRI of the brain, carotid Doppler studies and an echocardiogram will be obtained. Patient will be started on appropriate initial therapy including Plavix 75 mg p.o. daily. Patient will have available morphine sulfate 2 to 4 mg IV every 2 hours on a as needed basis for pain via sliding scale. 02/01/2019 patient will have a carotid Doppler and an echo and we will get his MRI scans from 3 weeks ago of his head. CT brain scan was negative for acute infarction patient's numbness and tingling have been constant for the last 3 days on his left arm and left leg. 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 02/02/2019 (5) Diabetes mellitus type 2 in nonobese Is this a current diagnosis for this admission?: Yes Plan: Hemoglobin A1c will be obtained to assess the patient's current therapy. He will be continued on his usual diabetic therapy and a diabetic diet. Before meals and at bedtime Accu-Cheks to be performed with sliding scale insulin used to cover hyperglycemia and a hypoglycemic protocol being in place. 02/01/2019 glucose last night on admission was 192. Fingerstick today ranges between 101 and 218. Patient was on Amaryl 4 mg twice daily and metformin thousand milligrams twice daily as an outpatient. 02/02/2019 serum glucose this morning was 163 A1c on admission was 8.2 - Time Time Spent with patient: 35 or more minutes - I have canceled the speech therapy consult, barium swallow
--- NOTE | 2019-02-02 12:36 | RADIOLOGY REPORT (SQ) ---
EXAM DESCRIPTION: CAROTID DOPPLER COMPLETED DATE/TIME: 02/02/2019 12:20 pm REASON FOR STUDY: Left sided tingling COMPARISON: None. TECHNIQUE: Grayscale ultrasound, Doppler velocity and spectra, and color Doppler images acquired of the extra-cranial carotid and vertebral arteries. Images stored on PACS. LIMITATIONS: None. FINDINGS: RIGHT CAROTID CCA Velocities: Within normal limits. ICA Velocities Complete occlusion. Heterogenous plaque. LEFT CAROTID CCA Velocities: Within normal limits. ICA Velocities Peak systolic 2.29 m/s. End diastolic 0.72 m/s. Proximal ICA/CCA peak systolic ratio 1.9. Heterogenous plaque. VERTEBRAL ARTERIES: Unable to visualize the right vertebral artery. Elevated antegrade flow in the l eft vertebral artery. SUBCLAVIAN ARTERIES: No finding. OTHER: No other significant finding. IMPRESSION: 1. COMPLETE OCCLUSION OF THE RIGHT INTERNAL CAROTID ARTERY. 2. 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 3. UNABLE TO VISUALIZE THE RIGHT VERTEBRAL ARTERY. ELEVATED ANTEGRADE FLOW IN THE LEFT VERTEBRAL ART MATEO. COMMENT: Quality ID #[id number]: Velocity criteria are extrapolated from the diameter data as defined by t he Society of Radiologists in Ultrasound Consensus Conference. Radiology 2003: 229; 340-346. TECHNICAL DOCUMENTATION: JOB ID: [id number] [employer]- All Rights Reserved Reading location - IP/workstation name: [email or web address]
[2019-02-02] MEDS: OXYCODONE-ACETAMINOPHEN 5-325 MG TABLET PO PRN ×2 (13:26→21:32)
--- NOTE | 2019-02-02 19:49 | XCELERA REPORT ---
[address] [address] Transthoracic Echocardiogram Report Name: RENATA AGUILAR Age: 69 yrs Gender: Male : 1950 Patient Status: Inpatient Patient Location: [address] [place], [place] [id number] Study Date: 02/02/2019 10:47 AM Height: 68 in Weight: 152 lb BSA: 1.8 m2 Procedure: A two-dimensional transthoracic echocardiogram with color flow and Doppler was performed. Study Quality: Fair. Reason For Study: TIA / CVA History: TIA / CVA. Ordering Physician: GAYATHRI BAEZ Performed By: Cherise Garcia Interpretation Summary There is no obvious cardiac source of embolus noted on this transthoracic echocardiogram. Follow-up with a [facility] is suggested if cardiac source is still suspected. The left ventricle is normal in size. There is normal left ventricular wall thickness. LV EF is 65% The left ventricular ejection fraction is within normal limits. Doppler measurements suggest impaired left ventricular relaxation, which is associated with grade I/IV or mild diastolic dysfunction The left ventricular wall motion is normal. There is no thrombus. No ASD ,VSD , or PFO seen. The right ventricle is grossly normal size. The right ventricle is not well visualized secondary to technical limitations The right atrium is normal. The left atrial size is normal. Leaflet tip calcification present. There is no vegetation seen on the mitral valve. There is no evidence of mitral valve prolapse. There is no mitral valve stenosis. There is a trace amount of mitral regurgitation There is no LVOT obstruction. No aortic regurgitation is present. There is no tricuspid stenosis. There is a trace amount of tricuspid regurgitation Tricuspid regurgitation jet envelope not well defined to measure RV systolic pressure accurately. There is no pulmonic valvular stenosis. There is a trace amount of pulmonic regurgitation The aortic root is normal size. The inferior vena cava appeared dilated and decreased < 50% with respiration (RAP 15-20 mmHg) There is no pericardial effusion. There is no obvious cardiac source of embolus noted on this transthoracic echocardiogram. Follow-up with a [facility] is suggested if cardiac source is still suspected MMode/2D Measurements & Calculations RVDd: 4.0 cm LVIDd: 5.0 cm FS: 38.5 % Ao root diam: 2.8 cm IVSd: 1.1 cm LVIDs: 3.1 cm EDV(Teich): Ao root area: LVPWd: 1.1 cm 116.5 ml 6.4 cm2 ESV(Teich): 36.7 mlLA dimension: 3.9 cm EF(Teich): 68.5 % LVLd ap4: 8.2 cm SV(MOD-sp4): EDV(MOD-sp4): 65.0 ml 89.0 ml LVLs ap4: 6.8 cm ESV(MOD-sp4): 24.0 ml EF(MOD-sp4): 73.0 % Doppler Measurements & Calculations MV E max luna: MV P1/2t max luna: Ao V2 max: LV V1 max P.4 cm/sec 80.9 cm/sec 116.7 cm/sec 4.9 mmHg MV A max luna: MV P1/2t: 81.9 msec Ao max PG: LV V1 max: 113.0 cm/sec MVA(P1/2t): 2.7 cm2 5.5 mmHg 110.6 cm/sec MV E/A: 0.72 MV dec slope: 289.3 cm/sec2 MV dec time: 0.27 sec PA V2 max: MV P1/2t-pr_phl: 78.0 cm/sec 81.9 msec PA max P.4 mmHg Left Ventricle The left ventricle is normal in size. There is normal left ventricular wall thickness. LV EF is 65%. The left ventricular ejection fraction is within normal limits. Doppler measurements suggest impaired left ventricular relaxation, which is associated with grade I/IV or mild diastolic dysfunction. The left ventricular wall motion is normal. There is no thrombus. No ASD ,VSD , or PFO seen. Right Ventricle The right ventricle is grossly normal size. The right ventricle is not well visualized secondary to technical limitations. Atria The right atrium is normal. The left atrial size is normal. Mitral Valve Leaflet tip calcification present. There is no evidence of mitral valve prolapse. There is no vegetation seen on the mitral valve. There is no mitral valve stenosis. There is a trace amount of mitral regurgitation. Aortic Valve There is no aortic valvular vegetation. There is aortic sclerosis without aortic stenosis. There is no LVOT obstruction. No aortic regurgitation is present. Tricuspid Valve There is no tricuspid stenosis. There is a trace amount of tricuspid regurgitation. Tricuspid regurgitation jet envelope not well defined to measure RV systolic pressure accurately. Pulmonic Valve There is no pulmonic valvular stenosis. There is a trace amount of pulmonic regurgitation. Great Vessels The aortic root is normal size. The inferior vena cava appeared dilated and decreased < 50% with respiration (RAP 15-20 mmHg). Effusions There is no pericardial effusion. : GAYATHRI BAEZ Lakshmi
[2019-02-03] MEDS: LEVALBUTEROL HCL NEB 1.25 MG/3 ML AMPUL NEB SCH ×2 (00:15→08:18)
[2019-02-03] MEDS: IPRATROPIUM BROMIDE 0.02% NEB 0.5 MG/2.5 ML AMPUL NEB SCH ×2 (00:15→08:18)
[2019-02-03] MEDS: GABAPENTIN 400 MG CAPSULE PO SCH ×2 (06:08→14:05)
[2019-02-03] MEDS: HEPARIN SOD (PORCINE) 5,000 UNIT/ML 1 ML VIAL SUBCUT SCH ×2 (06:08→14:07)
[2019-02-03] MEDS: OXYCODONE-ACETAMINOPHEN 5-325 MG TABLET PO PRN ×2 (06:16→14:06)
[2019-02-03] MEDS: BUDESONIDE NEB 0.5 MG/2 ML AMPUL NEB SCH (08:18)
[2019-02-03] MEDS: LISINOPRIL 10 MG TABLET PO SCH (09:24)
[2019-02-03] MEDS: METFORMIN HCL 500 MG TABLET PO SCH (09:24)
[2019-02-03] MEDS: FAMOTIDINE 20 MG TABLET PO SCH (09:24)
[2019-02-03] MEDS: CLONIDINE HCL 0.1 MG TABLET PO SCH (09:24)
[2019-02-03] MEDS: CLOPIDOGREL BISULFATE 75 MG TABLET PO SCH (09:24)
[2019-02-03] MEDS: GLIMEPIRIDE 4 MG TABLET PO SCH (09:25)
[2019-02-03] MEDS: INSULIN REG, HUMAN 100 UNIT/ML 3 ML VIAL (PYX) SUBCUT SCH ×2 (09:26→11:34)
[2019-02-03 14:57] VITALS: BP 142/69
--- NOTE | 2019-02-03 15:28 | PDOC CONSULTATION ---
Consultation Consult Date: 02/03/19 Attending physician:: JORDANA ALVARENGA Provider Consulted: JASBIR ROSALES Consult reason:: Left arm tingling and numbness. History of Present Illness Admission Date/PCP: 01/31/19 23:47 Patient complains of: Tingling and numbness in the left arm and leg. History of Present Illness: RENATA AGUILAR is a 69 year old male Present for several days. 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 He then presented to hospital where he has been worked up for cause. He continues to have some numbness and tingling in the left arm. The patient has had a number of vascular procedures including a right carotid endarterectomy 10 to 15 years ago, heart stents, bilateral leg stents. He continues to smoke 1-1/2 6 packs of cigarettes per day which he has for the last 60 years. He has diabetes and hypertension. He has hypercholesterolemia. Past Medical History Cardiac Medical History: Reports: Coronary Artery Disease, Myocardial Infarction, Hyperlipidema, Hypertension Denies: Atrial Fibrillation, Congestive Heart Failure Pulmonary Medical History: Reports: Chronic Obstructive Pulmonary Disease (COPD) Denies: Asthma, Respiratory Failure EENT Medical History: Denies: Cataracts, Ears - Hearing aids Neurological Medical History: Denies: Hemorrhagic CVA, Ischemic CVA, Seizures Endocrine Medical History: Reports: Diabetes Mellitus Type 2 Denies: Diabetes Mellitus Type 1, Hyperthyroidism, Hypothyroidism, Obesity Renal/ Medical History: Denies: Chronic Kidney Disease, Nephrolithiasis Malignancy Medical History: Reports: None GI Medical History: Denies: Cirrhosis, Crohn's Disease, Gastroesophageal Reflux Disease, Hepatitis, Peptic Ulcer Disease, Ulcerative Colitis Musculoskeltal Medical History: Denies: Arthritis, Gout Skin Medical History: Denies: Eczema, Psoriasis Psychiatric Medical History: Reports: Tobacco Dependency Denies: Alcohol Dependency, Depression, Substance Abuse Traumatic Medical History: Reports: None Hematology: Denies: Anemia, Bleeding Tendencies Infectious Medical History: Reports: None Past Surgical History Past Surgical History: Reports: Cardiac Catheterization, Coronary Stent - X 2, Hip Replacement, Orthopedic Surgery - bilateral hips, Vascular Surgery Social History Lives with: Alone Smoking Status: Current Every Day Smoker Cigarettes Packs Per Day: 1.5 Number of Years Smokin Last Time Smoked: today Frequency of Alcohol Use: Rare Hx Recreational Drug Use: No Drugs: None Hx Prescription Drug Abuse: No - Advance Directive Resuscitation Status: Full Code Family History Family History: CAD, DM, Hypertension. denies: Malignancy Parental Family History Reviewed: No Children Family History Reviewed: No Sibling(s) Family History Reviewed.: No Medication/Allergy Home Medications: Glimepiride 4 mg PO BID 08/06/15 Metformin HCl 1,000 mg PO BID 08/06/15 Albuterol Sulfate [Proair HFA Inhalation Aerosol 8.5 gm MDI] 1 puff IH Q4 PRN #1 mdi 08/07/15 Gabapentin 800 mg PO Q8 02/01/19 Multivitamin [Tab-A-Sylvia (Multiple Vitamin) Tablet] 1 tab PO DAILY 02/01/19 Oxycodone HCl/Acetaminophen [Percocet 5-325 mg Tablet] 1 tab PO Q8HP PRN MDD 4 tabs 02/01/19 Atorvastatin Calcium [Lipitor 40 mg Tablet] 40 mg PO QHS #30 tab 02/03/19 Clonidine HCl [Catapres 0.1 mg Tablet] 0.1 mg PO Q12 #60 tablet 02/03/19 Clopidogrel Bisulfate [Plavix 75 mg Tablet] 75 mg PO DAILY #30 tablet 02/03/19 Lisinopril [Prinivil 10 mg Tablet] 10 mg PO DAILY #30 tablet 02/03/19 Allergies/Adverse Reactions: No Known Allergies Allergy (Verified 01/13/19 09:23) Physical Exam Vital Signs: Temp Pulse Resp BP Pulse Ox 97.3 F 61 16 142/69 H 96 02/03/19 14:55 02/03/19 14:55 02/03/19 14:55 02/03/19 14:55 02/03/19 14:55 Intake & Output 02/02/19 02/03/19 02/04/19 06:59 06:59 06:59 Intake Total 1164 360 240 Balance 1164 360 240 Weight 70.3 kg 71.5 kg Additional comments: Constitutional: Well-developed well-nourished gentleman. No apparent acute distress. Eyes: Mucous membranes pink and moist, pupils equal and reactive to light. Conjunctiva normal. Cornea normal. ENT: Hearing grossly normal. External pinna normal to inspection. Upper dentures noted. Tongue normal to inspection. Head and neck: Right-sided scar, consistent with endarterectomy noted. Cardiac: Heart sounds 1 and 2 normal, no murmurs. No carotid bruit. Respiratory: breath sounds are present bilaterally, slightly distant. Normal respiratory effort. Skin: Age-related damage noted. Flaking noted in the feet suggestive of tinea pedis. Abdomen: Soft, non tender. Liver and spleen are not palpably enlarged. Mildly protuberant. No hernia noted. Surgical scars absent. Psychiatric: Judgment, memory, insight seem normal. Mood is pleasant and appropriate. Extremities: Upper extremities show normal range of movement. Pulses present noted to the radial arteries. Capillary refill normal. No cyanosis noted. No muscle wasting noted. Lower extremities show normal range of movement. Pulses not felt at the dorsalis pedis artery. Capillary refill borderline. No cyanosis noted. No muscle wasting noted. Neurovascular: No apparent tremors, gait normal. Sensation grossly intact. Hearing grossly normal. Vison grossly intact. Results Laboratory Results: 02/02/19 06:32 02/02/19 06:32 01/31/19 01/31/19 01/31/19 14:57 14:57 21:45 Creatine Kinase 96 CK-MB (CK-2) 2.70 Troponin I 0.015 0.015 02/01/19 02/01/19 02/01/19 05:28 05:28 11:51 Creatine Kinase 80 93 CK-MB (CK-2) 2.16 Troponin I 0.012 02/01/19 02/01/19 02/01/19 11:51 17:20 17:20 Creatine Kinase 94 CK-MB (CK-2) 2.23 1.98 Troponin I < 0.012 < 0.012 Impressions: Chest X-Ray 01/31/19 14:23 IMPRESSION: No acute findings. Chronic increased interstitial markings, stable Head CT 01/31/19 14:23 IMPRESSION: NORMAL BRAIN CT WITHOUT CONTRAST. EVIDENCE OF ACUTE STROKE: NO. Carotid Doppler Study 02/02/19 00:00 IMPRESSION: 1. COMPLETE OCCLUSION OF THE RIGHT INTERNAL CAROTID ARTERY. 2. 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 3. UNABLE TO VISUALIZE THE RIGHT VERTEBRAL ARTERY. ELEVATED ANTEGRADE FLOW IN THE LEFT VERTEBRAL ARTERY. Assessment & Plan - Diagnosis (1) Numbness and tingling of right upper and lower extremity Is this a current diagnosis for this admission?: Yes (2) CAD (coronary artery disease) Is this a current diagnosis for this admission?: Yes (3) Chronic obstructive pulmonary disease (COPD) Qualifiers: COPD type: unspecified COPD Qualified Code(s): J44.9 - Chronic obstructive pulmonary disease, unspecified Is this a current diagnosis for this admission?: Yes (4) Diabetes mellitus type 2 in nonobese Is this a current diagnosis for this admission?: Yes (5) Hypertension Is this a current diagnosis for this admission?: Yes (6) Tobacco use disorder, severe, dependence Is this a current diagnosis for this admission?: Yes - Plan Summary Plan Summary: In this patient with ongoing symptoms, worrying for chronic right cerebral ischemia, carotid findings of complete obstruction of the right internal carotid, 70% of the left with increased flow of the left vertebral artery, seemingly intractable tobacco use disorder, hypertension, diabetes, hypercho lesterolemia. Very significant risk for stroke. Stroke mitigation is challenging since his occluded right-sided carotid artery is generally not salvageable and the left side with relatively modest o pportunity for improving blood flow. Unless modifiable recent risks factors are dealt with the outcome is ominous. Most particular the patient is counseled to completely quit tobacco use, to work with his primary care provider in [place] to bring his diabetes under control, the last hemoglobin A1c was over 10, to manage hypertension, cholesterol appropriately. Antiplatelet medication is certainly warranted. The patient is very eager to go home, with the above in place there is probably no major impediment. I would like to see him in office in the next week and arrange for at least evaluation towards carotid intervention. Again the patient is counseled that he is at very high risk for stroke regardless of the intervention and that a good outcome cannot be expected unless they modifiable risk factors including tobacco use cessation are not adhered to. The patient exhibits good understanding of his problem and acceptance of the risks and of his personal part to play in the outcome.
--- NOTE | 2019-02-04 18:37 | PDOC DISCHARGE SUMMARY ---
Impression - Admit/DC Date/PCP Admission Date/Primary Care Provider: 01/31/19 23:47 Discharge Date: 02/03/19 - Discharge Diagnosis (1) Carotid occlusion, right Is this a current diagnosis for this admission?: Yes (2) Tingling of left upper extremity Is this a current diagnosis for this admission?: Yes (3) CAD (coronary artery disease) Is this a current diagnosis for this admission?: Yes (4) Chronic obstructive pulmonary disease (COPD) Is this a current diagnosis for this admission?: Yes - Additional Information Resuscitation Status: Full Code Discharge Diet: Cardiac Discharge Activity: Activity As Tolerated, Balance Activity w/Rest Referrals: JASBIR ROSALES MD [ACTIVE STAFF] - 02/11/19 11:00 am Prescriptions: Clonidine HCl [Catapres 0.1 mg Tablet] 0.1 mg PO Q12 #60 tablet Atorvastatin Calcium [Lipitor 40 mg Tablet] 40 mg PO QHS #30 tab Clopidogrel Bisulfate [Plavix 75 mg Tablet] 75 mg PO DAILY #30 tablet Lisinopril [Prinivil 10 mg Tablet] 10 mg PO DAILY #30 tablet Home Medications: Glimepiride 4 mg PO BID 08/06/15 Metformin HCl 1,000 mg PO BID 08/06/15 Albuterol Sulfate [Proair HFA Inhalation Aerosol 8.5 gm MDI] 1 puff IH Q4 PRN #1 mdi 08/07/15 Gabapentin 800 mg PO Q8 02/01/19 Multivitamin [Tab-A-Sylvia (Multiple Vitamin) Tablet] 1 tab PO DAILY 02/01/19 Oxycodone HCl/Acetaminophen [Percocet 5-325 mg Tablet] 1 tab PO Q8HP PRN MDD 4 tabs 02/01/19 Atorvastatin Calcium [Lipitor 40 mg Tablet] 40 mg PO QHS #30 tab 02/03/19 Clonidine HCl [Catapres 0.1 mg Tablet] 0.1 mg PO Q12 #60 tablet 02/03/19 Clopidogrel Bisulfate [Plavix 75 mg Tablet] 75 mg PO DAILY #30 tablet 02/03/19 Lisinopril [Prinivil 10 mg Tablet] 10 mg PO DAILY #30 tablet 02/03/19 History of Present Illiness History of Present Illness: Admitting hospitalist's H&P: RENATA AGUILAR is a 69 year old male who presents the emergency room with a 3-day history of a tingling sensation in his left upper and lower extremities. He states that his left arm and leg abruptly began tingling ([id number]) at approximately noon on 01/29/2019, while he was driving home. The tingling has remained constant and of moderate intensity since onset. He further admits that a friend of his told him that his speech was a little slurred and that his face looked different than usual when his symptoms started. Patient states that he checked in the mirror and listen to himself and did not see or hear any changes. He adds that he has experienced some general dizziness with standing or changing position and a dull sensation in his left chest earlier on the day of admission that lasted for a few minutes and resolved spontaneously. He denies other associated signs or symptoms. He denies prior similar episodes. He has not identified any aggravating or ameliorating factors for the tingling sensation in his left extremities. In the emergency room he was found to have a CT scan of the head negative for evidence of acute stroke or hemorrhage. His laboratory evaluation was unremarkable with the exception of an elevated serum glucose. Patient was subsequently admitted to the [facility] for evaluation and treatment in the stroke protocol. Hospital [facility] Hospital Course: This is a 69-year-old male who initially presented with left arm tingling and reported slurred speech and facial flattening. She is admitted for possible TIA. CT of the head was unremarkable. His work-up did come back remarkable for an occlusion of the right internal carotid and 70% occlusion of the left. Vascular surgery was consulted to see if patient needs immediate intervention. Vascular surgery recommended optimizing medical therapy at this time. Patient will closely follow-up with Dr. Talita Rosales next week for further work-up for possible carotid intervention. Plavix and statin were added to patient's regimen. Also emphasized strict glycemic and blood pressure control. Patient verbalized understanding including his high risk of getting stroke from his carotid disease. Physical Exam Vital Signs: Temp Pulse Resp BP Pulse Ox 97.3 F 61 16 142/69 H 96 02/03/19 14:55 02/03/19 14:55 02/03/19 14:55 02/03/19 14:55 02/03/19 14:55 Intake & Output 02/03/19 02/04/19 02/05/19 06:59 06:59 06:59 Intake Total 360 240 Balance 360 240 Weight 157 lb 10.088 oz General appearance: PRESENT: no acute distress, well-developed, well-nourished Head exam: PRESENT: atraumatic, normocephalic Eye exam: PRESENT: conjunctiva pink, EOMI, PERRLA. ABSENT: scleral icterus Ear exam: PRESENT: normal external ear exam Mouth exam: PRESENT: moist, tongue midline Neck exam: ABSENT: carotid bruit, JVD, lymphadenopathy, thyromegaly Respiratory exam: PRESENT: clear to auscultation emily. ABSENT: rales, rhonchi, wheezes Cardiovascular exam: PRESENT: RRR. ABSENT: diastolic murmur, rubs, systolic murmur Pulses: PRESENT: normal dorsalis pedis pul GI/Abdominal exam: PRESENT: normal bowel sounds, soft. ABSENT: distended, guarding, mass, organolmegaly, rebound, tenderness Rectal exam: PRESENT: deferred Extremities exam: PRESENT: full ROM. ABSENT: calf tenderness, clubbing, pedal edema Neurological exam: PRESENT: alert, awake, oriented to person, oriented to place, oriented to time, oriented to situation Results Laboratory Results: WBC 9.7 10^3/uL (4.0-10.5) 02/02/19 06:32 RBC 4.67 10^6/uL (4.35-5.55) 02/02/19 06:32 Hgb 13.0 g/dL (13.5-17.0) L 02/02/19 06:32 Hct 39.8 % (37.9-51.0) 02/02/19 06:32 MCV 85 fl (80-97) 02/02/19 06:32 MCH 27.8 pg (27.0-33.4) 02/02/19 06:32 MCHC 32.6 g/dL (32.0-36.0) 02/02/19 06:32 RDW 13.9 % (11.5-14.0) 02/02/19 06:32 Plt Count 218 10^3/uL (150-450) 02/02/19 06:32 Lymph % (Auto) 32.2 % (13-45) 01/31/19 14:57 [place] % (Auto) 6.4 % (3-13) 01/31/19 14:57 Eos % (Auto) 2.6 % (0-6) 01/31/19 14:57 Baso % (Auto) 1.4 % (0-2) 01/31/19 14:57 Absolute Neuts (auto) 8.1 10^3/uL (1.7-8.2) 01/31/19 14:57 Absolute Lymphs (auto) 4.5 10^3/uL (0.5-4.7) 01/31/19 14:57 Absolute Monos (auto) 0.9 10^3/uL (0.1-1.4) 01/31/19 14:57 Absolute Eos (auto) 0.4 10^3/uL (0.0-0.6) 01/31/19 14:57 Absolute Basos (auto) 0.2 10^3/uL (0.0-0.2) 01/31/19 14:57 Seg Neutrophils % 57.4 % (42-78) 01/31/19 14:57 PT 12.9 SEC (11.4-15.4) 01/31/19 14:57 INR 0.97 01/31/19 14:57 APTT 32.7 SEC (23.5-35.8) 01/31/19 14:57 Sodium 135.1 mmol/L (137-145) L 02/02/19 06:32 Potassium 4.3 mmol/L (3.6-5.0) 02/02/19 06:32 Chloride 102 mmol/L (98-107) 02/02/19 06:32 Carbon Dioxide 22 mmol/L (22-30) 02/02/19 06:32 Anion Gap 11 (5-19) 02/02/19 06:32 BUN 11 mg/dL (7-20) 02/02/19 06:32 Creatinine 0.79 mg/dL (0.52-1.25) 02/02/19 06:32 Est GFR ( Amer) > 60 (>60) 02/02/19 06:32 Est GFR (MDRD) Non-Af > 60 (>60) 02/02/19 06:32 Glucose 163 mg/dL (75-110) H 02/02/19 06:32 POC Glucose 175 mg/dL (70-110) H 02/03/19 11:10 Hemoglobin A1c % 8.2 % (4.7-6.0) H 02/02/19 06:32 Calcium 10.0 mg/dL (8.4-10.2) 02/02/19 06:32 Total Bilirubin 0.8 mg/dL (0.2-1.3) 01/31/19 14:57 Direct Bilirubin 0.1 mg/dL (0.0-0.4) 01/31/19 14:57 Neonat Total Bilirubin Not Reportable 01/31/19 14:57 Neonat Direct Bilirubin Not Reportable 01/31/19 14:57 Neonat Indirect Bili Not Reportable 01/31/19 14:57 AST 26 U/L (17-59) 01/31/19 14:57 ALT 18 U/L (<50) 01/31/19 14:57 Alkaline Phosphatase 72 U/L (38-126) 01/31/19 14:57 Creatine Kinase 94 U/L (55-170) 02/01/19 17:20 CK-MB (CK-2) 1.98 ng/mL (<4.55) 02/01/19 17:20 Troponin I < 0.012 ng/mL 02/01/19 17:20 Total Protein 7.6 g/dL (6.3-8.2) 01/31/19 14:57 Albumin 4.4 g/dL (3.5-5.0) 01/31/19 14:57 Triglycerides 498 mg/dL (<150) H 02/02/19 06:32 Cholesterol 149.37 mg/dL (0-200) 02/02/19 06:32 LDL Cholesterol Direct 69 mg/dL (<100) 02/02/19 06:32 VLDL Cholesterol, Calc UNABLE TO CALCULATE 02/02/19 06:32 HDL Cholesterol 39 mg/dL (>40) L 02/02/19 06:32 Urine Color YELLOW 02/01/19 04:30 Urine Appearance SLIGHTLY-CLOUDY 02/01/19 04:30 Urine pH 7.0 (5.0-9.0) 02/01/19 04:30 Ur Specific [place] 1.009 02/01/19 04:30 Urine Protein 30 mg/dL (NEGATIVE) H 02/01/19 04:30 Urine Glucose (UA) >=500 mg/dL (NEGATIVE) H 02/01/19 04:30 Urine Ketones NEGATIVE mg/dL (NEGATIVE) 02/01/19 04:30 Urine Blood NEGATIVE (NEGATIVE) 02/01/19 04:30 Urine Nitrite NEGATIVE (NEGATIVE) 02/01/19 04:30 Urine Bilirubin NEGATIVE (NEGATIVE) 02/01/19 04:30 Urine Urobilinogen NEGATIVE mg/dL (<2.0) 02/01/19 04:30 Ur Leukocyte Esterase MODERATE (NEGATIVE) H 02/01/19 04:30 Urine WBC (Auto) 30 /HPF 02/01/19 04:30 Urine RBC (Auto) 0 /HPF 02/01/19 04:30 Squamous Epi Cells Auto <1 /HPF 02/01/19 04:30 Urine Mucus (Auto) RARE /LPF 02/01/19 04:30 Urine Yeast (Budding) PRESENT /HPF 02/01/19 04:30 Urine Ascorbic Acid NEGATIVE (NEGATIVE) 02/01/19 04:30 01/31/19 01/31/19 02/01/19 14:57 21:45 05:28 CK-MB (CK-2) 2.70 2.16 Troponin I 0.015 0.015 0.012 02/01/19 02/01/19 11:51 17:20 CK-MB (CK-2) 2.23 1.98 Troponin I < 0.012 < 0.012 Impressions: Chest X-Ray 01/31/19 14:23 IMPRESSION: No acute findings. Chronic increased interstitial markings, stable Head CT 01/31/19 14:23 IMPRESSION: NORMAL BRAIN CT WITHOUT CONTRAST. EVIDENCE OF ACUTE STROKE: NO. Carotid Doppler Study 02/02/19 00:00 IMPRESSION: 1. COMPLETE OCCLUSION OF THE RIGHT INTERNAL CAROTID ARTERY. 2. 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 3. UNABLE TO VISUALIZE THE RIGHT VERTEBRAL ARTERY. ELEVATED ANTEGRADE FLOW IN THE LEFT VERTEBRAL ARTERY. Stroke Is this a Stroke Patient?: No Acute Heart Failure - Is this a Heart Failure Patient?: No LVEF < 40%?: No- if no continue to question #3
== END 2019-02-03 15:55 | disposition home or self-care (01) | DRG 68 ==
LOC: ER 14:06 → EH 23:47 → 3N 02-01 02:37
PROVIDERS: ADMIT Emergency Medicine; ATTEND Emergency Medicine
DX: I65.21 Occlusion and stenosis of right carotid artery (principal); R20.2 Paresthesia of skin; J44.9 Chronic obstructive pulmonary disease, unspecified; I10 Essential (primary) hypertension; E78.5 Hyperlipidemia, unspecified; R07.89 Other chest pain; E11.8 Type 2 diabetes mellitus with unspecified complications; I25.10 Atherosclerotic heart disease of native coronary artery without angina pectoris; I25.2 Old myocardial infarction; F17.210 Nicotine dependence, cigarettes, uncomplicated; Z79.84 Long term (current) use of oral hypoglycemic drugs; Z79.82 Long term (current) use of aspirin; Z79.51 Long term (current) use of inhaled steroids; Z79.52 Long term (current) use of systemic steroids; Z79.899 Other long term (current) drug therapy
CPT/HCPCS: 36415; 70450; 71045; 80048; 80053; 80061; 81001; 82550; 82553; 82962; 83036; 84484; 85025; 85027; 85610; 85730; 93005; 93010; 93306; 93880; 94640; 99285; J1644; J1815; J2270; J3490; J7614; J7620

== ENCOUNTER → 2019-02-27 | Outpatient (CLI) | payer MEDICARE, OTHER ==
--- NOTE | 2019-02-27 16:31 | RADIOLOGY REPORT (SQ) ---
EXAM DESCRIPTION: CTA HEAD COMPLETED DATE/TIME: 02/27/2019 3:06 pm REASON FOR STUDY: I65.22 OCCLUSION AND STENOSIS OF LEFT CAROTID ARTERY I65.22 OCCLUSION AND STENOSI S OF LEFT CAROTID ARTERY COMPARISON: None. TECHNIQUE: Post IV contrast scanning, thin section axial imaging through the brain to evaluate the a rterial structures. Source and MIP images are saved and reviewed on PACS. Advanced 3D imaging as volume-rendering, MIPs, SSD performed? yes All CT scanners at this facility use dose modulation, iterative reconstruction, and/or weight based d osing when appropriate to reduce radiation dose to as low as reasonably achievable (ALARA). [facility]: Dose Right [facility]: CareDose [facility]: Dose Right [facility]: Teradose 4D [facility]: DeNA CONTRAST TYPE AND DOSE: 80 mL Omnipaque 350- low osmolar. RENAL FUNCTION: BUN 7 creatinine 0.62. LIMITATIONS: None. FINDINGS: [place]: There is occlusion of the right internal carotid artery. There is exten sive calcified plaque in the right and left cavernous internal carotid arteries with probable high-gr rody stenosis. There is filling of the cerebral vessels via the intact [place]. The A1 segm ent of the right anterior cerebral artery is patent but very small and there is a patent anterior com municating artery. There are patent bilateral posterior communicating arteries. No cerebrovascular occlusions. POSTERIOR CIRCULATION: The distal vertebral arteries are patent as is the basilar artery. The right vertebral artery is small. No aneurysm. BRAIN: No gross enhancing lesions. BONES: Intact as visualized. SINUSES: No fluid or mucosal thickening. OTHER: No other significant finding. IMPRESSION: OCCLUDED RIGHT INTERNAL CAROTID ARTERY. EXTENSIVE CALCIFIED PLAQUE IN THE RIGHT AND LEF T CAVERNOUS INTERNAL CAROTID ARTERIES WITH PROBABLE HIGH-GRADE STENOSIS. CEREBRAL VESSELS DESCRIB ED WHICH ARE FILLED VIA THE COMPLETE [place] WITH PATENT ANTERIOR AND POSTERIOR COMMUNICATIN G ARTERIES. NO CEREBROVASCULAR OCCLUSIONS. TECHNICAL DOCUMENTATION: JOB ID: [id number] Quality ID # [id number]: Final reports with documentation of one or more dose reduction techniques (e.g., Au tomated exposure control, adjustment of the mA and/or kV according to patient size, use of iterative reconstruction technique) 2010 [employer]- All Rights Reserved Reading location - IP/workstation name: [email or web address]
--- NOTE | 2019-02-27 16:44 | RADIOLOGY REPORT (SQ) ---
EXAM DESCRIPTION: CTA NECK COMPLETED DATE/TIME: 02/27/2019 3:06 pm REASON FOR STUDY: I65.22 OCCLUSION AND STENOSIS OF LEFT CAROTID ARTERY I65.22 OCCLUSION AND STENOSI S OF LEFT CAROTID ARTERY COMPARISON: Carotid Doppler dated 02/02/2019. TECHNIQUE: Axial dynamic scanning technique with dynamic contrast enhancement through the extra-scrap stripper hand nial carotid and vertebral arteries. Multiplanar reconstruction. 3-D MIPS and Volume-rendered imag es acquired at the workstation and saved to PACS. Images are reviewed in soft tissue, bone, lung w indows. All CT scanners at this facility use dose modulation, iterative reconstruction, and/or weight based d osing when appropriate to reduce radiation dose to as low as reasonably achievable (ALARA). [facility]: Dose Right [facility]: CareDose [facility]: Dose Right [facility]: Teradose 4D [facility]: Ozmosis CONTRAST TYPE AND DOSE: contrast/concentration: Isovue 350.00 mg/ml; Total Contrast Delivered: 80.0 ml; Total Saline Delivered: 75.0 ml RENAL FUNCTION: BUN 7 creatinine 0.62. LIMITATIONS: None. FINDINGS: AORTIC ARCH: Normal three-vessel origin. Bilateral subclavian arteries are patent. No d issection. RIGHT CAROTIDS: Patent common carotid and external carotid artery. Complete occlusion of the interna l carotid artery approximately 1.5 cm distal to the carotid bifurcation. RIGHT VERTEBRAL: Complete occlusion. There is a small amount of contrast in the vertebral artery in the posterior fossa due to reflux from the left vertebral artery/basilar artery. LEFT CAROTIDS: Soft plaque in the mid common carotid artery at the level of C7/T1. There is approxim ately 80% luminal narrowing of the common carotid artery at this level. There is heavily calcified p laque in the carotid bulb and proximal internal carotid artery with high-grade stenosis of the rn internal medicine al carotid artery, greater than 90%. LEFT VERTEBRAL: Patent. No dissection. OTHER: No other significant finding. OTHER: 3-D reconstructions confirm findings. IMPRESSION: 1. COMPLETE OCCLUSION OF THE RIGHT INTERNAL CAROTID ARTERY. COMPLETE OCCLUSION OF THE RIGHT VERTEBRA L ARTERY. 2. SOFT PLAQUE IN THE MID LEFT COMMON CAROTID ARTERY WITH APPROXIMATELY 80% STENOSIS OF THE MID COMMO N CAROTID ARTERY. 3. HEAVILY CALCIFIED PLAQUE IN THE LEFT CAROTID BULB AND PROXIMAL INTERNAL CAROTID ARTERY. HIGH-GRAD E STENOSIS OF THE PROXIMAL LEFT INTERNAL CAROTID ARTERY, GREATER THAN 90%. COMMENT: Quality ID #[id number]: Measurements of distal internal carotid diameter were used as the denomina tor for stenosis measurement. TECHNICAL DOCUMENTATION: JOB ID: [id number] Quality ID # [id number]: Final reports with documentation of one or more dose reduction techniques (e.g., Au tomated exposure control, adjustment of the mA and/or kV according to patient size, use of iterative reconstruction technique) 2010 [employer]- All Rights Reserved Reading location - IP/workstation name: [email or web address]
== END ==
LOC: RAD 14:25
PROVIDERS: ATTEND Surgery Vascular Surgery
DX: I65.23 Occlusion and stenosis of bilateral carotid arteries (principal)
CPT/HCPCS: 70496; 70498